=== PATIENT | female | born 2000 | race Caucasian/White ===

== ENCOUNTER → 2024-08-02 13:30 | Outpatient (REF) | payer BC, SELFPAY | LOC: RAD 13:30 | PROVIDERS: ATTENDING PHYSICIAN Physician Assistant Medical | DX: R76.11 Nonspecific reaction to tuberculin skin test without active tuberculosis (principal) | CPT/HCPCS: 71046 ==

== ENCOUNTER → 2025-02-22 16:30 | Outpatient (REF) | payer BC, SELFPAY | LOC: RAD 16:30 | PROVIDERS: ATTENDING PHYSICIAN Physician Assistant Medical | DX: R76.11 Nonspecific reaction to tuberculin skin test without active tuberculosis (principal) | CPT/HCPCS: 71046 ==